=== PATIENT | male | born 1980 | race African-American/Black ===

== ENCOUNTER 2023-03-22 04:03 | Day surgery (SDC) | payer OTHER ==
[2023-03-20 14:10] VITALS: BMI 29.1
[~2023-03-22 04:03] MED LIST: BACITRACIN ZINC 15 GM TUBE TOPICAL OINTMENT TP ONE; BUPIVACAINE HCL/PF 0.25% (2.5MG/ML) 10 ML VIAL IJ ONE; ceFAZolin SODIUM 1 GM VIAL IVPB ONE
[2023-03-22] MEDS ORDERED: MIDAZOLAM HCL 2 MG/2 ML SINGLE DOSE VIAL ONE (06:50)
[2023-03-22] MEDS ORDERED: KETAMINE HCL 500 MG/10 ML VIAL ONE (06:50)
[2023-03-22] MEDS ORDERED: SUCCINYLCHOLINE CHLORIDE 200 MG/10 ML SYRINGE ONE (06:51)
[2023-03-22] MEDS ORDERED: PROPOFOL 40 ML ONE ×2 (06:51→07:49)
[2023-03-22] MEDS ORDERED: BACITRACIN ZINC 15 GM TUBE TOPICAL OINTMENT ONE (07:06)
[2023-03-22] MEDS ORDERED: BUPIVACAINE HCL/PF 0.25% (2.5MG/ML) 10 ML VIAL ONE (07:06)
[2023-03-22] MEDS ORDERED: ACETAMINOPHEN INJECTION 100 ML IVPB ONE (07:31)
[2023-03-22] MEDS ORDERED: ceFAZolin SODIUM 1 GM VIAL IVPB ONE (07:42)
[2023-03-22] MEDS ORDERED: BUPIVACAINE HCL/PF 0.25% (2.5MG/ML) 10 ML VIAL IJ ONE ×2 (07:44)
[2023-03-22] MEDS ORDERED: BACITRACIN ZINC 15 GM TUBE TOPICAL OINTMENT TP ONE (08:00)
[2023-03-22] MEDS ORDERED: oxyCODONE HCL 5 MG TABLET PO PRN (08:06)
[2023-03-22] MEDS ORDERED: DEXTROSE 5%-0.45% SALINE 1,000 ML IV SCH (08:15)
[2023-03-22] MEDS ORDERED: LACTATED RINGERS SOLUTION 1,000 ML IV SCH (08:45)
[2023-03-22 09:21] VITALS: RESP 20
[2023-03-22 10:29] VITALS: TEMP 97.1
[2023-03-22 12:25] VITALS: BP 116/81; PULSE 75
== END 2023-03-22 12:40 | disposition home or self-care (01) ==
LOC: JASU-SURG 04:03
PROVIDERS: ATTEND Urology
PROC: 0VTTXZZ Resection of Prepuce, External Approach (ICD-10-PCS; principal; 2023-03-22 07:30)
DX: N47.1 Phimosis (principal)
CPT/HCPCS: 88304-TC; 94760